=== PATIENT | male | born 1945 | race Caucasian/White ===

== ENCOUNTER 2017-08-14 13:31 | Emergency (ER) | payer MEDICARE ==
[2017-08-14 13:47] VITALS: BP 163/76; PULSE 79; RESP 20; TEMP 97.2; O2SAT 96
[2017-08-14] MEDS ORDERED: LOSA50TA PO (14:21)
[2017-08-14] MEDS ORDERED: GLIP5TAB8 PO (14:21)
[2017-08-14] MEDS ORDERED: AMLO10TA2 PO (14:25)
[2017-08-14 14:41] LABS: AUTOMATED NEUTROPHIL # 4.3 TH/MM3 (1.8-7.7); BASOPHIL % 0.3 % (0.0-2.0); EOSINOPHIL # 0.3 TH/MM3 (0-0.4); EOSINOPHIL % 4.8 % (0.0-4.0); HEMATOCRIT 43.8 % (39.0-51.0); HEMOGLOBIN 14.2 GM/DL (13.0-17.0); LYMPH % 24.8 % (9.0-44.0); LYMPHOCYTE # 1.7 TH/MM3 (1.0-4.8); MEAN CELL VOLUME 87.7 FL (80.0-100.0); MEAN CORPUSCULAR HEMOGLOBIN 28.4 PG (27.0-34.0); MEAN CORPUSCULAR HGB CONC 32.4 % (32.0-36.0); MEAN PLATELET VOLUME 7.6 FL (7.0-11.0); MONO % 8.3 % (0.0-8.0); MONOCYTE # 0.6 TH/MM3 (0-0.9); NEUT % 61.8 % (16.0-70.0); PLATELET COUNT 332 TH/MM3 (150-450); RED CELL DISTRIBUTION WIDTH 14.3 % (11.6-17.2); WHITE BLOOD COUNT 6.9 TH/MM3 (4.0-11.0)
[2017-08-14] MEDS ORDERED: INSU3INS (14:44)
[2017-08-14] MEDS ORDERED: [UNRECOGNIZED DRUG - OTHER] PO (14:44)
[2017-08-14 14:48] LABS: CHLORIDE 104 MEQ/L (98-107); SODIUM (NA) 137 MEQ/L (136-145)
[2017-08-14 14:52] LABS: ALBUMIN 3.3 GM/DL (3.4-5.0); BICARBONATE 25.4 MEQ/L (21.0-32.0); BLOOD UREA NITROGEN 15 MG/DL (7-18); GLUCOSE,RANDOM 103 MG/DL (74-106)
[2017-08-14 14:55] LABS: ALT (GPT) 46 U/L (12-78); AST (GOT) 42 U/L (15-37); CREATININE 0.99 MG/DL (0.60-1.30); GLOMERULAR FILTRATION RATE 74 ML/MIN (>89)
[2017-08-14 14:57] LABS: TOTAL BILIRUBIN ADULT 0.2 MG/DL (0.2-1.0); TOTAL PROTEIN 7.8 GM/DL (6.4-8.2)
[2017-08-14 14:58] LABS: ALKALINE PHOSPHATASE 93 U/L (45-117)
[2017-08-14 15:06] VITALS: BP 134/71; PULSE 64; RESP 18; O2SAT 96
[2017-08-14] MEDS ORDERED: METR-1 PO (15:59)
--- NOTE | 2017-08-14 16:00 | PD ---
HPI Chief Complaint: GI Complaint Time Seen by Provider: 14:15 Travel History International Travel<30 days: No Contact w/Intl Traveler<30days: No Traveled to known affect area: No History of Present Illness HPI 76-year-old male so has been having diarrhea for about a week. He is having repeatedly loose stools. He has a history of hemorrhoids as hemorrhoids have been flaring up. There has not been any travel. He is not aware of any unusual foods. He is not having abdominal pain or fever [facility] Past Medical History High Cholesterol: Yes Diabetes: Yes Patient Takes Glucophage: Yes Hypertension: Yes Tetanus Vaccination: > 5 Years Influenza Vaccination: Yes Past Surgical History Cholecystectomy: Yes Social History Alcohol Use: Yes (occ) Tobacco Use: No Allergies-Medications (Allergen,Severity, Reaction): Coded Allergies: canagliflozin (Verified Allergy, Intermediate, Itching, 08/14/17) Reported Meds & Prescriptions Reported Meds & Active Scripts Active Reported Xultophy 100 Unit-3.6MG/ml Pen (Insulin Degludec/Liraglutide) 100 Unit-3.6 Mg/ Ml (3 Ml) Insuln.pen [xioduo] 5-1000 1 Tab PO DAILY Amlodipine (Amlodipine Besylate) 10 Mg Tab 10 Mg PO DAILY Losartan (Losartan Potassium) 50 Mg Tab 50 Mg PO DAILY Glipizide 5 Mg Tab 5 Mg PO BIDAC Take 30 minutes before a meal Review of Systems General / Constitutional: No: Fever, Chills Eyes: No: Diploplia, Blurred Vision HENT: No: Headaches Cardiovascular: No: Chest Pain or Discomfort Gastrointestinal: Positive: Diarrhea, Changes in Bowel Habits, No: Vomiting, Abdominal Pain Genitourinary: No: Urgency, Frequency Skin: No Rash Neurologic: No: Weakness, Dizziness Physical Exam Narrative GENERAL: Well-developed male SKIN: Focused skin assessment warm/dry. HEAD: Atraumatic. Normocephalic. EYES: Pupils equal and round. No scleral icterus. No injection or drainage. ENT: No nasal bleeding or discharge. Mucous membranes pink and moist. NECK: Trachea midline. No JVD. CARDIOVASCULAR: Regular rate and rhythm. No murmur appreciated. RESPIRATORY: No accessory muscle use. Clear to auscultation. Breath sounds equal bilaterally. GASTROINTESTINAL: Abdomen soft, non-tender, nondistended. Hepatic and splenic margins not palpable. MUSCULOSKELETAL: No obvious deformities. No clubbing. No cyanosis. No edema. NEUROLOGICAL: Awake and alert. No obvious cranial nerve deficits. Motor grossly within normal limits. Normal speech. PSYCHIATRIC: Appropriate mood and affect; insight and judgment normal. Data Data Last Documented VS Vital Signs Date Time Temp Pulse Resp B/P (MAP) Pulse Ox O2 Delivery O2 Flow Rate FiO2 08/14/17 15:06 64 18 134/71 (92) 96 Room Air 08/14/17 13:47 97.2 Orders Orders Complete Blood Count With Diff (08/14/17 14:21) Comprehensive Metabolic Panel (08/14/17 14:21) Enteric Path (Stool) (08/14/17 14:21) C Diff Toxin Pcr (08/14/17 14:21) Labs Laboratory Tests Test 08/14/17 14:30 08/14/17 14:43 White Blood Count 6.9 TH/MM3 Red Blood Count 5.00 MIL/MM3 Hemoglobin 14.2 GM/DL Hematocrit 43.8 % Mean Corpuscular Volume 87.7 FL Mean Corpuscular Hemoglobin 28.4 PG Mean Corpuscular Hemoglobin Concent 32.4 % Red Cell Distribution Width 14.3 % Platelet Count 332 TH/MM3 Mean Platelet Volume 7.6 FL Neutrophils (%) (Auto) 61.8 % Lymphocytes (%) (Auto) 24.8 % Monocytes (%) (Auto) 8.3 % Eosinophils (%) (Auto) 4.8 % Basophils (%) (Auto) 0.3 % Neutrophils # (Auto) 4.3 TH/MM3 Lymphocytes # (Auto) 1.7 TH/MM3 Monocytes # (Auto) 0.6 TH/MM3 Eosinophils # (Auto) 0.3 TH/MM3 Basophils # (Auto) 0.0 TH/MM3 CBC Comment DIFF FINAL Differential Comment Blood Urea Nitrogen 15 MG/DL Creatinine 0.99 MG/DL Random Glucose 103 MG/DL Total Protein 7.8 GM/DL Albumin 3.3 GM/DL Calcium Level 9.0 MG/DL Alkaline Phosphatase 93 U/L Aspartate Amino Transf (AST/SGOT) 42 U/L Alanine Aminotransferase (ALT/SGPT) 46 U/L Total Bilirubin 0.2 MG/DL Sodium Level 137 MEQ/L Potassium Level 4.2 MEQ/L Chloride Level 104 MEQ/L Carbon Dioxide Level 25.4 MEQ/L Anion Gap 8 MEQ/L Estimat Glomerular Filtration Rate 74 ML/MIN MDM Medical Decision Making Medical Screen Exam Complete: Yes Emergency Medical Condition: Yes Medical Record Reviewed: Yes Differential Diagnosis Differential includes colitis, enteritis, C. difficile Narrative Course There has been no recent antibiotics given. His lab work as unremarkable. Give him a trial of Flagyl he will be released. He has returning to [place] next week in follow-up with his own doctor there. Diagnosis Primary Impression: Enteritis Scripts Metronidazole (Flagyl) 500 Mg Tab 500 MG PO TID for Infection for 7 Days, TAB 0 Refills Prov: Alexy Anguiano MD 08/14/17 Disposition: DISCHARGE HOME Condition: Stable Alexy Anguiano MD Aug 14, 2017 16:00
[2017-08-14 16:10] VITALS: BP 147/0
== END 2017-08-14 16:15 | disposition home or self-care (01) ==
LOC: PHED 13:31
DX: K52.9 Noninfective gastroenteritis and colitis, unspecified (principal); E11.9 Type 2 diabetes mellitus without complications; I10 Essential (primary) hypertension; Z79.4 Long term (current) use of insulin
CPT/HCPCS: 80053; 85025; 87493; 87506; 99283